=== PATIENT | male | born 1950 | race Caucasian/White ===

== ENCOUNTER 2024-03-13 11:14 | Outpatient (CLI) | payer MEDICARE, SELFPAY ==
[2024-03-13 12:56] LABS: Abs Immature Grans 0.02 10^3/uL (0.0-0.06); Absolute Basophil Count 0.03 10^3/uL (0.0-0.2); Absolute Eosinophil Count 0.08 10^3/uL (0.0-0.7); Absolute Lymphocyte Count 1.16 10^3/uL (1.2-3.4); Absolute Monocyte Count 0.61 10^3/uL (0.1-0.8); Absolute Neutrophil Count 3.67 10^3/uL (1.2-6.7); Basophils % 0.5 %; Eosinophils % 1.4 %; HCT 36.5 % (40.0-50.0); HGB 12.5 g/dL (13.5-17.5); Immature Grans % 0.4 %; Lymphocytes % 20.8 %; MCH 30.1 pg (27.0-33.0); MCHC 34.2 % (32.0-36.0); MCV 88 fL (80-95); MPV 10.8 fL (8.0-11.0); Neutrophils % 65.9 %; Platelet Count 146 10^3/uL (130-400); RBC 4.15 10^6/uL (4.36-5.78); RDW 12.6 % (11.8-14.1); WBC 5.57 10^3/uL (4.4-10.8)
[2024-03-13 13:48] LABS: ALT 34 U/L (16-63); AST 22 U/L (15-37); Alkaline Phosphatase 86 U/L (46-116); BUN 19 mg/dL (7-18); Bilirubin, Total 0.54 mg/dL (0.2-1.0); CREATININE 1.3 mg/dL (0.70-1.30); Calcium 8.7 mg/dL (8.5-10.1); Chloride 106 mmol/L (98-107); Estimated GFR 57.65 (mL/min/1.73m2); Glucose 127 mg/dL (74-106); Potassium 4.4 mmol/L (3.5-5.1); Sodium 139 mmol/L (136-145); Total Protein 7.3 g/dL (6.4-8.2); Uric Acid 5.4 mg/dL (3.5-7.2)
[2024-03-13 14:57] LABS: Calculated LDL 38 mg/dL (<100); Cholesterol 113 mg/dL (<200); HDL Cholesterol 52 mg/dL (40-60); Triglyceride 119 mg/dL (<150)
[2024-03-13 17:43] LABS: Lab Add On Test DONE
[2024-03-13 18:02] LABS: Hemoglobin A1C 6.1 % (<5.7)
[2024-03-13 18:17] LABS: Ferritin 187 ng/mL (26-388); Folate 12.6 ng/mL (8.6-20.0); Vitamin B12 413 pg/mL (193-986)
[2024-03-13 18:42] LABS: PSA, Screening 1.3 ng/mL (<=6.5)
[2024-03-13 19:22] LABS: HIV-1/2 Ag & Ab Screen Negative (Negative)
[2024-03-16 09:41] LABS: Hepatitis C Ab w Rflx HCV PCR Negative (Negative)
[2024-03-16 10:43] LABS: HBs Antibody, Quant <3.1 mIU/mL (See Note); Hep B Surface Ab Negative (See Note); Hepatitis B Core Antibody Negative (Negative); Hepatitis B Surface Antigen Negative (Negative)
== END 2024-03-13 11:15 | disposition home or self-care (01) ==
LOC: LOS 11:15
PROVIDERS: PCP Nurse Practitioner Family; Visit Provider Nurse Practitioner Family
DX: Z11.4 Encounter for screening for human immunodeficiency virus [HIV] (principal); I10 Essential (primary) hypertension; M10.9 Gout, unspecified; E55.9 Vitamin D deficiency, unspecified; Z11.59 Encounter for screening for other viral diseases; Z12.5 Encounter for screening for malignant neoplasm of prostate; D64.9 Anemia, unspecified; R73.09 Other abnormal glucose
CPT/HCPCS: 36415; 80053; 80061; 82306; 84153; 86704; 86706; 86803; 87340; 87389; 82607; 82728; 82746; 83036; 84550; 85025

== ENCOUNTER 2024-06-01 07:29 | Outpatient (CLI) | payer MEDICARE, SELFPAY ==
[2024-06-01 08:00] LABS: Anion Gap 13.1 mmol/L (3-11); BUN 34 mg/dL (7-18); CO2 22.9 mmol/L (21.0-32.0); CREATININE 1.5 mg/dL (0.70-1.30); Calcium 8.8 mg/dL (8.5-10.1); Chloride 104 mmol/L (98-107); Estimated GFR 48.55 (mL/min/1.73m2); Glucose 150 mg/dL (74-106); Potassium 4.1 mmol/L (3.5-5.1); Sodium 140 mmol/L (136-145)
== END 2024-06-01 07:30 | disposition home or self-care (01) ==
LOC: LBO 07:29
PROVIDERS: PCP Nurse Practitioner Family; Visit Provider Family Medicine
DX: I10 Essential (primary) hypertension (principal)
CPT/HCPCS: 36415; 80048

== ENCOUNTER 2025-02-22 08:39 | Outpatient (CLI) | payer MEDICARE, SELFPAY ==
[2025-02-22 13:09] LABS: Anion Gap 10.8 mmol/L (3-11); BUN 38 mg/dL (7-18); CO2 25.2 mmol/L (21.0-32.0); CREATININE 1.7 mg/dL (0.70-1.30); Calcium 8.9 mg/dL (8.5-10.1); Calculated LDL 59 mg/dL (<100); Chloride 104 mmol/L (98-107); Cholesterol 129 mg/dL (<200); Estimated GFR 41.52 (mL/min/1.73m2); Glucose 111 mg/dL (74-106); HDL Cholesterol 50 mg/dL (>or=40); Potassium 4.9 mmol/L (3.5-5.1); Sodium 140 mmol/L (136-145); Triglyceride 101 mg/dL (<150)
[2025-02-22 22:23] LABS: PSA, Screening 1.4 ng/mL (<=6.5)
== END 2025-02-22 08:40 | disposition home or self-care (01) ==
PROVIDERS: PCP Nurse Practitioner Family; Referring Provider Nurse Practitioner Family; Visit Provider Nurse Practitioner Family
DX: Z12.5 Encounter for screening for malignant neoplasm of prostate (principal); Z13.1 Encounter for screening for diabetes mellitus; Z13.6 Encounter for screening for cardiovascular disorders
CPT/HCPCS: 36415; 80048; 80061; 84153